=== PATIENT | male | born 1950 ===

== ENCOUNTER 2022-11-27 07:08 | Day surgery (SDC) | payer MEDICARE, OTHER ==
[~2022-11-27] VITALS: Ht 180.3 cm; Wt 95.5 kg
[~2022-11-27 07:08] MED LIST: ELIQUIS5 MG PO; FLECAINIDE ACE100 MG PO; ROSUVASTATIN CA10 MG PO; SILDENAFIL20 MG PO; VERAPAMIL HCL80 MG PO
--- NOTE | 2022-11-27 09:13 | NUR ---
11/27/22 0913 Dania Naylor 0910-PATIENT ARRIVED TO PACU ON 2L NC RR EVEN. PATIENT AWAKE DENIES PAIN OR NAUSEA. ABDOMEN SOFT. IVF INFUSING. HOB ELEVATED.
--- NOTE | 2022-11-27 15:17 | OR ---
[facility] [address], [place] [address] Signed DATE OF OPERATION: 11/27/2022 SURGEON: Kike Quintana MD PREOPERATIVE DIAGNOSES: 1. History of tubular adenoma of cecum 2019. 2. Atrial fibrillation, chronic anticoagulation. POSTOPERATIVE DIAGNOSIS: No evidence of recurrent polyp; marginal right sided prep, however. PROCEDURE: Total colonoscopy to the cecum. ANESTHESIA: Intravenous sedation, fentanyl 100 mcg and Versed 3 mg. INDICATION: This 72-year-old white man is a patient Dr. Ch and underwent colonoscopy in 2019, at which time he was found to have a small tubular adenoma of the cecum. Repeat colonoscopy was recommended at this time interval based on those findings. The patient has atrial fibrillation and has been off his anticoagulant of Eliquis for three days. He is admitted to undergo colonoscopy for surveillance. He understands the risks of bleeding, infection, and perforation. He understands these risks and wished to proceed. FINDINGS: Much of the colon was adequately prepped, but the right colon, less so. There were seeds and fibrous material noted in the cecum despite prep. In any case, there was no evidence of polyps, diverticular formation, colitis or cancer on those areas visualized well. The procedure was lengthy in that copious irrigation was undertaken to provide adequate visualization. DESCRIPTION OF PROCEDURE: The patient was brought to the endoscopy suite and placed in the lateral decubitus position, given intravenous sedation to the point of slurred speech and nystagmus. Digital rectal examination was normal. An Olympus video colonoscope was passed in the rectum and manipulated throughout the colon. The left side and transverse was reasonably well prepped, but at the hepatic flexure less so. Fibrous material was noted, indeed irrigation of the scope was Electronically Signed By: KIKE QUINTANA MD 11/27/22 1517 PATIENT NAME: LEDY POND OPERATIVE REPORT DATE OF : 48 REPORT #: [id number] PHYSICIAN: KIKE QUINTANA MD PCP: DEUCE CH DO REPORT IS CONFIDENTIAL AND NOT TO BE RELEASED WITHOUT AUTHORIZATION [facility] [address], [place] [address] Signed required, brushings and so forth to maintain good suction. The scope was advanced into the right colon and copious amounts of irrigation undertaken visualizing mucosa well but not without a fair amount of irrigation and challenge. Ultimately, the scope was passed to the cecum. There was a puddle of material including seeds, nuts and so forth that could not be cleared entirely, but with various manipulations, body position change and so forth mucosa was reasonably examined. The scope was then withdrawn. Examination throughout undertaken showed no sign of polyps, diverticular formation, colitis, or cancer. The scope was removed and the patient was taken to the recovery room in good condition. CONCLUDING DIAGNOSIS: No evidence of recurrent polyp at this point. PLAN: Recommend repeat colonoscopy in 5 years with special attention to prep preoperatively. MD SURY Cordova/MALU /[id number] cc: Deuce Ch DO Copies: DEUCE CH DO ~ Electronically Signed By: KIKE QUINTANA MD 11/27/22 1517 PATIENT NAME: LEDY POND MASHA OPERATIVE REPORT DATE OF : 48 REPORT #: [id number] PHYSICIAN: KIKE QUINTANA MD PCP: DEUCE CH DO REPORT IS CONFIDENTIAL AND NOT TO BE RELEASED WITHOUT AUTHORIZATION
== END 2022-11-27 10:05 | disposition home or self-care (01) ==
LOC: DS 07:08 → OPS 07:08 → DS 14:00 → OPS 14:00
PROVIDERS: ATTEND Surgery
PROC: 0DJD8ZZ Inspection of Lower Intestinal Tract, Via Natural or Artificial Opening Endoscopic (ICD-10-PCS; 2022-11-27)
PROC: 0DJD8ZZ Inspection of Lower Intestinal Tract, Via Natural or Artificial Opening Endoscopic (ICD-10-PCS; principal; 2022-11-27 08:15)
DX: Z12.11 Encounter for screening for malignant neoplasm of colon (principal); K11.20 Sialoadenitis, unspecified; I48.91 Unspecified atrial fibrillation; Z86.010 Personal history of colon polyps
CPT/HCPCS: 99153; G0500; J2250; J3010; J7121